=== PATIENT | male | born 1955 | race African-American/Black ===

== ENCOUNTER 2020-07-20 12:34 | Inpatient (IN) | payer MEDICARE, MEDICAID ==
[~2020-07-20] VITALS: Ht 170.2 cm; Wt 95.7 kg
[2020-07-20 13:28] LABS: BASOPHILS % 0.9 % (0.0-2.0); HEMATOCRIT. 34.6 % (42.0-52.0); HEMOGLOBIN. 11.3 g/dL (14.0-18.0); LYMPHOCYTES % 25.1 % (20.0-50.0); MEAN CORPUSCULAR VOLUME 85.8 fL (80.0-94.0); MEAN PLATELET VOLUME 9.7 fl (7.4-10.4); MONOCYTES % 14.7 % (2.0-8.0); NEUTROPHILS % 57.3 % (40.0-76.0); PLATELET 158 x1000/uL (130-400); RED BLOOD CELL COUNT 4.03 mill/uL (4.7-6.1); RED CELL DISTRIBUTION WIDTH 16.8 % (11.6-14.6)
[2020-07-20] MEDS ORDERED: NITROGLYCERIN 0.4MG TABLET SL SL PRN (13:30)
[2020-07-20] MEDS ORDERED: ASPIRIN 325MG EC TABLET PO ONE (13:30)
[2020-07-20 13:31] LABS: CHLORIDE 112 mEq/L (98-107)
[2020-07-20 23:00] VITALS: BP 140/86
[2020-07-20] MEDS ORDERED: IOHEXOL-300 100 ML BOTTLE ONE (23:16)
[2020-07-21] VITALS: BP 140/91
[2020-07-21] MEDS ORDERED: ALBU6.7H9 INH (00:01)
[2020-07-21] MEDS ORDERED: DOCUSATE SODIUM 100MG CAPSULE PO PRN (03:15)
[2020-07-21] MEDS ORDERED: CLONIDINE 0.1MG TABLET PO PRN (03:15)
[2020-07-21] MEDS ORDERED: MAGNESIUM/ALUMINUM HYDROXIDE/SIMETHICONE 30ML UDC PO PRN (03:15)
[2020-07-21] MEDS ORDERED: ACETAMINOPHEN 325MG TABLET PO PRN (03:15)
[2020-07-21] MEDS ORDERED: ENOXAPARIN 40MG/0.4ML SYR SUBCUT SCH (03:15)
[2020-07-21] MEDS ORDERED: ONDANSETRON HCL 4MG/2ML INJ IV PRN (03:15)
[2020-07-21] MEDS: FUROSEMIDE 40MG/4ML VIAL IV SCH ×3 (03:28→17:38)
[2020-07-21 04:00] VITALS: BP 136/91
[2020-07-21] MEDS: HYDROCODONE/ACETAMINOPHEN 5/325MG TABLET PO PRN ×2 (07:03→17:46)
[2020-07-21 08:00] VITALS: BP 135/90
[2020-07-21 09:53] LABS: CHLORIDE 108 mEq/L (98-107)
[2020-07-21 10:00] LABS: LDL CHOLESTEROL 102 mg/dL (5-100)
[2020-07-21 10:02] LABS: HDL CHOLESTEROL 42 mg/dL (40-59); T4 FREE 1.11 ng/dL (0.76-1.46)
[2020-07-21] MEDS: IPRATROPIUM/ALBUTEROL 0.5-3(2.5)MG/3ML NEB NEB PRN (10:19)
[2020-07-21] MEDS: ASPIRIN 81MG EC TABLET PO SCH (10:34)
[2020-07-21] MEDS: ENOXAPARIN 30MG/0.3ML SYR SUBCUT SCH ×2 (10:35→21:26)
[2020-07-21 12:00] VITALS: BP 124/85
[2020-07-21] MEDS ORDERED: REGADENOSON 0.4 MG/5 ML IV NR (12:45)
[2020-07-21 16:00] VITALS: BP 130/91
[2020-07-21 17:24] LABS: CREATINE KINASE 95 IU/L (39-308)
[2020-07-21 17:25] LABS: CREATINE KINASE MB FRACTION 1.7 ng/mL (0.5-3.6)
[2020-07-21 20:00] VITALS: BP 133/89
[2020-07-21 23:12] LABS: *BARBITURATES SCREEN URINE NEGATIVE (NEGATIVE); *BENZODIAZEPINES SCREEN URINE NEGATIVE (NEGATIVE)
[2020-07-21 23:13] LABS: *COCAINE SCREEN URINE NEGATIVE (NEGATIVE); CANNABINOID URINE SCREEN NEGATIVE (NEGATIVE); METHADONE URINE SCREEN NEGATIVE (NEGATIVE); OPIATES URINE SCREEN PRESUMTIVE POSITIVE (NEGATIVE); PHENCYCLIDINE URINE SCREEN NEGATIVE (NEGATIVE)
[2020-07-21 23:14] LABS: *AMPHETAMINES SCREEN URINE NEGATIVE (NEGATIVE)
[2020-07-22] VITALS: BP 118/74
[2020-07-22 00:58] LABS: CREATINE KINASE MB FRACTION 1.7 ng/mL (0.5-3.6)
[2020-07-22 04:00] VITALS: BP 108/75
[2020-07-22 07:39] LABS: CREATINE KINASE MB FRACTION 1.6 ng/mL (0.5-3.6)
[2020-07-22] MEDS: FUROSEMIDE 40MG/4ML VIAL IV SCH ×2 (08:25→17:46)
[2020-07-22] MEDS: ASPIRIN 81MG EC TABLET PO SCH (10:04)
[2020-07-22] MEDS: ENOXAPARIN 30MG/0.3ML SYR SUBCUT SCH ×2 (10:04→20:21)
[2020-07-22 12:00] VITALS: BP 116/69
[2020-07-22 13:17] LABS: CLARITY URINE CLEAR (CLEAR); COLOR URINE YELLOW (YELLOW); KETONES URINE NEGATIVE (NEGATIVE); LEUKOCYTE ESTERASE URINE NEGATIVE (NEGATIVE); NITRITE URINE NEGATIVE (NEGATIVE); OCCULT BLOOD URINE NEGATIVE (NEGATIVE); PROTEIN URINE NEGATIVE (NEGATIVE); SPECIFIC GRAVITY URINE 1.007 (1.005-1.030); UROBILINOGEN URINE 0.2 E.U./dL (0.2-1.0)
[2020-07-22 16:00] VITALS: BP 112/74
[2020-07-22 20:00] VITALS: BP 134/89
[2020-07-23] VITALS: BP 124/71
[2020-07-23 04:00] VITALS: BP 130/76
[2020-07-23] MEDS: IPRATROPIUM/ALBUTEROL 0.5-3(2.5)MG/3ML NEB NEB PRN (05:51)
[2020-07-23] MEDS: FUROSEMIDE 40MG/4ML VIAL IV SCH ×2 (06:17→17:19)
[2020-07-23 07:52] LABS: CHLORIDE 102 mEq/L (98-107); HEMATOCRIT. 40.9 % (42.0-52.0); MEAN CORPUSCULAR VOLUME 85.1 fL (80.0-94.0); MEAN PLATELET VOLUME 10.9 fl (7.4-10.4); PLATELET 163 x1000/uL (130-400)
[2020-07-23 08:00] VITALS: BP 119/75
[2020-07-23] MEDS: GUAIFENESIN-DM 200MG-20MG/10ML UDC PO PRN ×2 (09:31→17:58)
[2020-07-23] MEDS: ASPIRIN 81MG EC TABLET PO SCH (09:31)
[2020-07-23] MEDS: ENOXAPARIN 30MG/0.3ML SYR SUBCUT SCH ×2 (09:32→20:49)
[2020-07-23] MEDS: HYDROCODONE/ACETAMINOPHEN 5/325MG TABLET PO PRN ×2 (11:52→21:07)
[2020-07-23 13:32] LABS: PLATELET ESTIMATE NORMAL
[2020-07-23 16:00] VITALS: BP 130/84
[2020-07-23] MEDS ORDERED: CARVEDILOL 3.125 MG TABLET PO SCH (17:30)
[2020-07-23 20:00] VITALS: BP 105/67
[2020-07-23] MEDS: CARVEDILOL 3.125 MG TABLET PO SCH (20:59)
[2020-07-24] VITALS: BP 126/82
[2020-07-24] MEDS: GUAIFENESIN-DM 200MG-20MG/10ML UDC PO PRN ×3 (01:03→16:53)
[2020-07-24] MEDS: FUROSEMIDE 40MG/4ML VIAL IV SCH (06:25)
[2020-07-24 06:26] VITALS: BP 114/74
[2020-07-24 08:05] LABS: HEMATOCRIT. 41.8 % (42.0-52.0); HEMOGLOBIN. 13.5 g/dL (14.0-18.0); MEAN CORPUSCULAR HEMOGLOBIN 27.6 pg (28.0-32.0); MEAN CORPUSCULAR VOLUME 85.3 fL (80.0-94.0); MEAN PLATELET VOLUME 10.2 fl (7.4-10.4); PLATELET 179 x1000/uL (130-400); RED CELL DISTRIBUTION WIDTH 16.7 % (11.6-14.6)
[2020-07-24 08:22] LABS: CHLORIDE 102 mEq/L (98-107)
[2020-07-24 08:40] VITALS: BP 102/58
[2020-07-24] MEDS: ASPIRIN 81MG EC TABLET PO SCH (08:42)
[2020-07-24] MEDS: CARVEDILOL 3.125 MG TABLET PO SCH (08:42)
[2020-07-24] MEDS: ENOXAPARIN 30MG/0.3ML SYR SUBCUT SCH (08:43)
[2020-07-24] MEDS ORDERED: LOSARTAN POTASSIUM 25 MG TABLET PO SCH (09:00)
[2020-07-24] MEDS ORDERED: CLOPIDOGREL 75MG TABLET PO SCH (10:00)
[2020-07-24 12:00] VITALS: BP 108/71
[2020-07-24] MEDS ORDERED: LOSA25TA3 PO (13:06)
[2020-07-24] MEDS ORDERED: FURO40TA5 MT (13:06)
[2020-07-24] MEDS ORDERED: ASPI-1406 PO (13:06)
[2020-07-24] MEDS ORDERED: COR3 PO (13:06)
[2020-07-24] MEDS ORDERED: CLOP75TA15 PO (13:06)
[2020-07-24 14:06] LABS: PLATELET ESTIMATE NORMAL
== END 2020-07-24 17:29 | disposition home health service (06) | DRG 194 ==
LOC: ER 12:34 → EDBEDREQTM 15:15 → 5WST 18:26 → EDBEDREQTM 18:29 → EDBEDREQ 18:29 → ENRESERV 20:48
PROVIDERS: ADMIT Internal Medicine; ATTEND Internal Medicine
DX: I11.0 Hypertensive heart disease with heart failure (principal); M94.0 Chondrocostal junction syndrome [Tietze]; J96.00 Acute respiratory failure, unspecified whether with hypoxia or hypercapnia; D64.9 Anemia, unspecified; I50.43 Acute on chronic combined systolic (congestive) and diastolic (congestive) heart failure; N40.0 Benign prostatic hyperplasia without lower urinary tract symptoms; K40.90 Unilateral inguinal hernia, without obstruction or gangrene, not specified as recurrent; I25.10 Atherosclerotic heart disease of native coronary artery without angina pectoris; Z20.822 Contact with and (suspected) exposure to COVID-19; J45.909 Unspecified asthma, uncomplicated; I27.20 Pulmonary hypertension, unspecified; I36.1 Nonrheumatic tricuspid (valve) insufficiency; I25.2 Old myocardial infarction; Z79.899 Other long term (current) drug therapy
CPT/HCPCS: 36415; 71045; 71275; 74174; 78452; 80048; 80053; 80061; 80305; 81003; 82550; 82553; 83036; 83735; 83880; 84439; 84443; 84484; 85025; 87426; 93005; 93306; 94640; 99285; A9500; J1650; J1940; J2785; Q9967